=== PATIENT | female | born 1990 | race Caucasian/White ===

== ENCOUNTER 2016-06-23 01:21 | Inpatient (IN) | payer OTHER ==
[2016-06-23 02:28] LABS: RED BLOOD COUNT 3.22 M/UL (4.00-5.10); WHITE BLOOD COUNT 7.3 K/UL (4.5-11.0)
[2016-06-24 06:26] LABS: HEMOGLOBIN 10.3 gm/dl (12.3-15.3)
[2016-06-24] MEDS ORDERED: COLACE 100MG C100 MG PO (13:52)
== END 2016-06-24 14:25 | disposition home or self-care (01) | DRG 774 ==
LOC: GENOP 01:21 → OB 01:51
PROVIDERS: Obstetrics & Gynecology; ADMIT Obstetrics & Gynecology
PROC: 0UQMXZZ Repair Vulva, External Approach (ICD-10-PCS; principal; 2016-06-23)
PROC: 10E0XZZ Delivery of Products of Conception, External Approach (ICD-10-PCS; principal; 2016-06-23)
PROC: 3E02329 Introduction of Other Anti-infective into Muscle, Percutaneous Approach (ICD-10-PCS; principal; 2016-06-23)
PROC: 3E0234Z Introduction of Serum, Toxoid and Vaccine into Muscle, Percutaneous Approach (ICD-10-PCS; 2016-06-24)
DX: O99.334 Smoking (tobacco) complicating childbirth (principal); O98.82 Other maternal infectious and parasitic diseases complicating childbirth; F17.210 Nicotine dependence, cigarettes, uncomplicated; B95.1 Streptococcus, group B, as the cause of diseases classified elsewhere; O70.0 First degree perineal laceration during delivery; O71.82 Other specified trauma to perineum and vulva; Z3A.38 38 weeks gestation of pregnancy; Z37.0 Single live birth; Z23 Encounter for immunization; O42.02 Full-term premature rupture of membranes, onset of labor within 24 hours of rupture; O69.81X0 Labor and delivery complicated by cord around neck, without compression, not applicable or unspecified
CPT/HCPCS: 36415; 36600; 51702; 82800; 85014; 85018; 85025; 90715; J2590; J2795; J3010; J3430; J7120

== ENCOUNTER 2021-02-01 23:15 | Emergency (ER) | payer OTHER ==
[~2021-02-01 23:15] MED LIST: COLACE 100MG C100 MG PO; IBUPROFEN800 MG PO; TRAMADOL HCL50 MG PO
[2021-02-02] MEDS ORDERED: VISTARIL 25 MG25 MG PO (01:20)
== END 2021-02-02 02:20 | disposition home or self-care (01) ==
LOC: ER1 23:15
DX: F41.9 Anxiety disorder, unspecified (principal); F32.9 Major depressive disorder, single episode, unspecified
CPT/HCPCS: 99283